=== PATIENT | male | born 1990 | race Caucasian/White ===

== ENCOUNTER 2017-07-19 16:32 | Emergency (ER) | payer OTHER ==
[2017-07-19 16:38] VITALS: PULSE 103; TEMP 97.6
--- NOTE | 2017-07-19 16:50 | ED ---
Abdominal Pain HPI - General Chief Complaint: Abdominal Pain Stated Complaint: Abd Pain, Trouble Urinating Time Seen by Provider: 07/19/17 16:40 Source: patient, RN notes reviewed Mode of arrival: ambulatory Limitations: no limitations - History of Present Illness Initial Comments: This is a 27-year-old male presents emergency Department chief complaint abdominal pain. Patient states pain started last 24 hours. Describes as lower abdominal pain and pressure. Patient states that he's had some urinary issues in which she's had hesitancy over the last few months and went and saw his primary care physician who treated for cystitis. Patient is currently taking Bactrim. He denies any diarrhea, constipation, melena hematochezia. He denies any current nausea vomiting. Denies any hematuria. Patient has no penile drainage. Denies any flank pain. He's had no prior abdominal surgeries. Patient states that he did take hydrocodone which she had from a prior surgery but states that which was discomfort. MD Complaint: abdominal pain - Related Data Home Medications Medication Instructions Recorded Confirmed Gabapentin [Neurontin] 300 mg PO TID 07/19/17 07/19/17 HYDROcodone/APAP 5-325MG [[place] 1 tab PO ONCE PRN 07/19/17 07/19/17 5-325] Naproxen [Naprosyn] 500 mg PO Q12HR PRN 07/19/17 07/19/17 Sulfamethox-Tmp 800-160Mg [Bactrim 1 tab PO Q12HR 07/19/17 07/19/17 DS 800-160 mg] Previous Rx's Medication Instructions Recorded Bisacodyl [Dulcolax] 5 mg PO DAILY #20 tablet. 07/19/17 Allergies Allergy/AdvReac Type Severity Reaction Status Date / Time Penicillins Allergy Rash/Hives Verified 07/19/17 16:49 Review of Systems ROS Statement: Those systems with pertinent positive or pertinent negative responses have been documented in the HPI. ROS Other: All systems not noted in ROS Statement are negative. Past Medical History Past Medical History: No Reported History History of Any Multi-Drug Resistant Organisms: None Reported Additional Past Surgical History / Comment(s): Larissa on left leg Past Psychological History: No Psychological Hx Reported Smoking Status: Never smoker Past Alcohol Use History: Rare Past Drug Use History: None Reported General Exam Limitations: no limitations General appearance: alert, in no apparent distress Head exam: Present: atraumatic, normocephalic, normal inspection Respiratory exam: Present: normal lung sounds bilaterally. Absent: respiratory distress, wheezes, rales, rhonchi, stridor Cardiovascular Exam: Present: regular rate, normal rhythm, normal heart sounds. Absent: systolic murmur, diastolic murmur, rubs, gallop, clicks GI/Abdominal exam: Present: soft, tenderness (Mild tenderness of the lower abdomen), normal bowel sounds. Absent: distended, guarding, rebound, rigid Back exam: Absent: CVA tenderness (R), CVA tenderness (L) Course Vital Signs 07/19/17 07/19/17 16:34 17:38 Temperature 97.6 F Pulse Rate 103 H Respiratory 18 16 Rate Blood Pressure 128/74 124/78 O2 Sat by Pulse 98 Oximetry Medical Decision Making - Medical Decision Making 27-year-old male presents for abdominal pain. Patient's found have moderate stool burden on x-ray. Patient's labwork unremarkable. Patient does have some complaints of urinary hesitancy and which she is advised follow-up with urology. Patient was up-to-date on all his lab results. Patient will be discharged on laxatives at this time. - Lab Data Result diagrams: 07/19/17 17:00 07/19/17 17:00 Lab Results 07/19/17 07/19/17 07/19/17 Range/Units 17:00 17:00 17:00 WBC 7.2 (3.8-10.6) k/uL RBC 5.58 (4.30-5.90) m/uL Hgb 15.7 (13.0-17.5) gm/dL Hct 45.2 (39.0-53.0) % MCV 81.0 (80.0-100.0) fL MCH 28.2 (25.0-35.0) pg MCHC 34.8 (31.0-37.0) g/dL RDW 12.5 (11.5-15.5) % Plt Count 252 (150-450) k/uL Neutrophils % 55 % Lymphocytes % 30 % Monocytes % 10 % Eosinophils % 1 % Basophils % 1 % Neutrophils # 4.0 (1.3-7.7) k/uL Lymphocytes # 2.2 (1.0-4.8) k/uL Monocytes # 0.7 (0-1.0) k/uL Eosinophils # 0.1 (0-0.7) k/uL Basophils # 0.1 (0-0.2) k/uL Sodium 143 (137-145) mmol/L Potassium 4.0 (3.5-5.1) mmol/L Chloride 101 (98-107) mmol/L Carbon Dioxide 25 (22-30) mmol/L Anion Gap 17 mmol/L BUN 15 (9-20) mg/dL Creatinine 1.00 (0.66-1.25) mg/dL Est GFR (CKD-EPI)AfAm >90 (>60 ml/min/1.73 sqM) Est GFR (CKD-EPI)NonAf >90 (>60 ml/min/1.73 sqM) Glucose 108 H (74-99) mg/dL Calcium 9.7 (8.4-10.2) mg/dL Total Bilirubin 0.5 (0.2-1.3) mg/dL AST 22 (17-59) U/L ALT 21 (21-72) U/L Alkaline Phosphatase 99 (38-126) U/L Total Protein 7.7 (6.3-8.2) g/dL Albumin 4.8 (3.5-5.0) g/dL Amylase 94 (30-110) U/L Lipase 126 (23-300) U/L Urine Color Yellow Urine Appearance Clear (Clear) Urine pH 6.0 (5.0-8.0) Ur Specific [place] 1.025 (1.001-1.035) Urine Protein Trace H (Negative) Urine Glucose (UA) Negative (Negative) Urine Ketones Negative (Negative) Urine Blood Negative (Negative) Urine Nitrite Negative (Negative) Urine Bilirubin Negative (Negative) Urine Urobilinogen 2.0 (<2.0) mg/dL Ur Leukocyte Esterase Negative (Negative) Disposition Clinical Impression: Abdominal pain, Constipation, Urinary hesitancy Disposition: HOME SELF-CARE Condition: Stable Instructions: Abdominal Pain (ED) Additional Instructions: Please return to the Emergency Department if symptoms worsen or any other concerns. Prescriptions: Bisacodyl [Dulcolax] 5 mg PO DAILY #20 tablet.dr Referrals: Cordell Conway MD [Primary Care Provider] - 1-2 days Nain Stroud MD [STAFF PHYSICIAN] - 1-2 days Time of Disposition: 17:55
[2017-07-19 17:09] LABS: Appearance,Urine Clear (Clear); Bilirubin,Urine Negative (Negative); Blood,Urine Negative (Negative); Color,Urine Yellow; Glucose,Urine (UA) Negative (Negative); Ketones,Urine Negative (Negative); Leukocyte Esterase,Urine Negative (Negative); Nitrite,Urine Negative (Negative); Protein,Urine Trace (Negative); Specific Gravity,Urine 1.025 (1.001-1.035)
[2017-07-19 17:10] LABS: Basophils # (A) 0.1 k/uL (0-0.2); Basophils % (A) 1 %; Eosinophils # (A) 0.1 k/uL (0-0.7); Eosinophils % (A) 1 %; HCT 45.2 % (39.0-53.0); HGB 15.7 gm/dL (13.0-17.5); Lymphocytes # (A) 2.2 k/uL (1.0-4.8); Lymphocytes % (A) 30 %; MCH 28.2 pg (25.0-35.0); MCHC 34.8 g/dL (31.0-37.0); Mean Platelet Volume 7.5; Monocytes # (A) 0.7 k/uL (0-1.0); Monocytes % (A) 10 %; Neutrophils % (A) 55 %; Platelet Count 252 k/uL (150-450); RBC 5.58 m/uL (4.30-5.90); RDW 12.5 % (11.5-15.5); WBC 7.2 k/uL (3.8-10.6)
[2017-07-19 17:21] LABS: ALT 21 U/L (21-72); AST 22 U/L (17-59); Albumin 4.8 g/dL (3.5-5.0); Alkaline Phosphatase 99 U/L (38-126); Amylase 94 U/L (30-110); Anion Gap 17 mmol/L; Blood Urea Nitrogen 15 mg/dL (9-20); Calcium 9.7 mg/dL (8.4-10.2); Carbon Dioxide 25 mmol/L (22-30); Chloride 101 mmol/L (98-107); Glucose 108 mg/dL (74-99); Lipase 126 U/L (23-300); Sodium 143 mmol/L (137-145); Total Bilirubin 0.5 mg/dL (0.2-1.3); Total Protein 7.7 g/dL (6.3-8.2)
--- NOTE | 2017-07-19 17:38 | XR ---
EXAMINATION TYPE: XR KUB DATE OF EXAM: 07/19/2017 CLINICAL DATA: 27-year-old male with abdominal pain, [facility] COMPARISON: None FINDINGS: Lung bases are clear. No evidence for free intraperitoneal air. No dilated small bowel or air-fluid levels. Scattered air and stool seen throughout the colon extendi ng distally into the rectum. Mild to moderate stool burden. No suspicious calcifications identified. Marked S-shaped scoliosis. IMPRESSION: 1. Mild to moderate stool burden. 2.No evidence of bowel obstruction or free intraperitoneal air. 3. S-shaped scoliosis.
[2017-07-19 17:44] VITALS: BP 124/78; RESP 16
[2017-07-21 13:28] LABS: C. trachomatis,PCR Negative (Neg,Equiv); Chlamydia trachomatis Source Urine; N. gonorrhoeae,PCR Negative (Neg,Equiv); Neisseria Source Urine
== END 2017-07-19 18:01 | disposition home or self-care (01) ==
LOC: EC 16:32
DX: R10.30 Lower abdominal pain, unspecified (principal); K59.00 Constipation, unspecified; R39.11 Hesitancy of micturition; Z88.0 Allergy status to penicillin; Z79.899 Other long term (current) drug therapy
CPT/HCPCS: 36415; 74018; 80053; 81003; 82150; 83690; 85025; 87491; 87591; 99284

== ENCOUNTER 2017-08-13 16:08 | Emergency (ER) | payer OTHER ==
[2017-08-13] MEDS ORDERED: SODIUM CHLORIDE 0.9% 1,000 ML IV STA (17:25)
--- NOTE | 2017-08-13 17:33 | ED ---
General Adult HPI - General Chief complaint: Urogenital Stated complaint: Groin Pain Time Seen by Provider: 08/13/17 16:25 Source: patient, family, RN notes reviewed Mode of arrival: ambulatory Limitations: no limitations - History of Present Illness Initial comments: Chief complaint history of present illness a 27-year-old male here with his father. The patient was sent here from the urgent care clinic. The patient's been having for several months difficulty urinating. He states that when the urine tries to pass through the urethra and feels as though he in the urethra tremble. Complains of severe pain. 2 days ago he was treated for prostatitis with an unknown antibiotic at this time. The patient reports the pain persisted is continued. He states that on the last examination done at the urgent care just several hours ago the examining doctor stated the urethra felt firm. The patient refuses any more examination because of severe pain. Patient states she's not drinking water because she does not want to urinate. Patient denies ever having had any STDs. - Related Data Home Medications Medication Instructions Recorded Confirmed Gabapentin [Neurontin] 300 mg PO TID 07/19/17 08/13/17 Naproxen [Naprosyn] 500 mg PO Q12HR PRN 07/19/17 08/13/17 Previous Rx's Medication Instructions Recorded Ciprofloxacin HCl [Cipro] 500 mg PO Q12HR #14 tablet 08/13/17 Phenazopyridine [Pyridium] 200 mg PO TID #6 tablet 08/13/17 Allergies Allergy/AdvReac Type Severity Reaction Status Date / Time Penicillins Allergy Rash/Hives Verified 08/13/17 16:26 Review of Systems ROS Statement: Those systems with pertinent positive or pertinent negative responses have been documented in the HPI. Review of systems no headache or chest pain or shortness of breath or GI problems. All systems are reviewed. Past medical problems bilateral kneecap subluxations. Denies any other medical problems nonsmoker nondrinker. He states he was treated with antibiotics twice now for the same pain he has now. He does have an appointment to see urologist but not for 5 days. He states he could not stand the pain. Father states that when the pain comes as severe his son becomes diaphoretic. ROS Other: All systems not noted in ROS Statement are negative. Past Medical History Past Medical History: No Reported History Additional Past Medical History / Comment(s): scoliosis History of Any Multi-Drug Resistant Organisms: None Reported Additional Past Surgical History / Comment(s): Larissa on left leg Past Psychological History: No Psychological Hx Reported Smoking Status: Never smoker Past Alcohol Use History: Rare Past Drug Use History: None Reported General Exam - General Exam Comments Initial Comments: General: The patient is awake and alert, in moderate to severe discomfort. Complains of pain in the urethral shaft and the perineum. Declines reexamination because the last one he had at the urgent care was so painful even just mild testing declines to happen again. Vital signs show temperature 98.0 pulse 118 respiratory rate 20 pulse ox 99% room air blood pressure 137/82 Eye: Pupils are equal, Neck: The neck is supple, Cardiovascular: There is a regular rate and rhythm. No murmur, rub or gallop is appreciated. Respiratory: Lungs are clear to auscultation, respirations are non-labored, breath sounds are equal. No wheezes, stridor, rales, or rhonchi. Gastrointestinal: Pain in the urethra. States dysuria getting progressively worse. Recently treated for prostatitis without improvement. Examination of the genitalia shows normal-appearing penis and testicles. Pain with palpation to the urethra and perineum. Back: No back pain No skin rashes, no neuro deficits. Limitations: no limitations Course Vital Signs 08/13/17 08/13/17 16:16 17:41 Temperature 98.0 F Pulse Rate 118 H 101 H Respiratory 20 20 Rate Blood Pressure 137/82 144/83 O2 Sat by Pulse 99 100 Oximetry Medical Decision Making - Medical Decision Making Medical decision making; a 27-year-old male here with his father. The patient' s been having on-again off-again dysuria. The case discussed with Dr. Hernandez, on-call urologist. The patient be following up with him in office in 5 days, this was appointment that been made previously. Labs show white count 11 hemoglobin 15 hematocrit of 45. Potassium 3.6 with a BUN 16 creatinine 0.86 and GFR greater than 90. Glucose 88. Urine shows 4+ ketones. Also 45 white cells in clumps. Negative nitrate negative leuk esterase. Patient was hydrated emergency room he did urinate twice reports was feeling less discomfort while doing so. The patient states she's comfortable going home medications as described. The patient will receive Pyridium and Cipro. Told to call the emergency room for 5 days to talk follow-up nurse to make sure that the Cipro is covering the infection seen on the urine culture. - Lab Data Result diagrams: 08/13/17 17:38 08/13/17 17:38 Lab Results 08/13/17 08/13/17 08/13/17 Range/Units 17:38 17:38 19:07 WBC 11.0 H (3.8-10.6) k/uL RBC 5.61 (4.30-5.90) m/uL Hgb 15.7 (13.0-17.5) gm/dL Hct 45.6 (39.0-53.0) % MCV 81.3 (80.0-100.0) fL MCH 28.0 (25.0-35.0) pg MCHC 34.4 (31.0-37.0) g/dL RDW 12.6 (11.5-15.5) % Plt Count 241 (150-450) k/uL Neutrophils % 69 % Lymphocytes % 24 % Monocytes % 6 % Eosinophils % 0 % Basophils % 1 % Neutrophils # 7.6 (1.3-7.7) k/uL Lymphocytes # 2.6 (1.0-4.8) k/uL Monocytes # 0.7 (0-1.0) k/uL Eosinophils # 0.0 (0-0.7) k/uL Basophils # 0.1 (0-0.2) k/uL Sodium 144 (137-145) mmol/L Potassium 3.6 (3.5-5.1) mmol/L Chloride 106 (98-107) mmol/L Carbon Dioxide 21 L (22-30) mmol/L Anion Gap 17 mmol/L BUN 16 (9-20) mg/dL Creatinine 0.86 (0.66-1.25) mg/dL Est GFR (CKD-EPI)AfAm >90 (>60 ml/min/1.73 sqM) Est GFR (CKD-EPI)NonAf >90 (>60 ml/min/1.73 sqM) Glucose 88 (74-99) mg/dL Calcium 10.2 (8.4-10.2) mg/dL Total Bilirubin 0.6 (0.2-1.3) mg/dL AST 22 (17-59) U/L ALT 24 (21-72) U/L Alkaline Phosphatase 115 (38-126) U/L Total Protein 7.6 (6.3-8.2) g/dL Albumin 5.0 (3.5-5.0) g/dL Urine Color Yellow Urine Appearance Turbid (Clear) Urine pH 8.0 (5.0-8.0) Ur Specific [place] 1.023 (1.001-1.035) Urine Protein Trace H (Negative) Urine Glucose (UA) Negative (Negative) Urine Ketones 4+ H (Negative) Urine Blood Negative (Negative) Urine Nitrite Negative (Negative) Urine Bilirubin Negative (Negative) Urine Urobilinogen 2.0 (<2.0) mg/dL Ur Leukocyte Esterase Negative (Negative) Urine WBC 45 H (0-5) /hpf Urine WBC Clumps Many H (None) /hpf Urine Mucus Few H (None) /hpf Disposition Clinical Impression: Urinary tract infection Disposition: HOME SELF-CARE Condition: Fair Instructions: Urinary Tract Infection in Men (ED) Additional Instructions: Increase fluids. Take Pyridium which will turn urine orange as directed take Cipro until completed. Call follow-up nurse in the emergency room at [phone] results of the urine culture and sensitivity study. Follow-up with Dr. Hernandez on Thursday as arranged. Prescriptions: Ciprofloxacin HCl [Cipro] 500 mg PO Q12HR #14 tablet Phenazopyridine [Pyridium] 200 mg PO TID #6 tablet Is patient prescribed a controlled substance at d/c from ED?: No When asked, does pt state using other controlled substances?: No Referrals: Cordell Conway MD [Primary Care Provider] - 1-2 days Time of Disposition: 20:03
[2017-08-13 18:02] LABS: Basophils # (A) 0.1 k/uL (0-0.2); Basophils % (A) 1 %; Eosinophils % (A) 0 %; HCT 45.6 % (39.0-53.0); HGB 15.7 gm/dL (13.0-17.5); Lymphocytes # (A) 2.6 k/uL (1.0-4.8); Lymphocytes % (A) 24 %; MCHC 34.4 g/dL (31.0-37.0); MCV 81.3 fL (80.0-100.0); Mean Platelet Volume 7.8; Monocytes # (A) 0.7 k/uL (0-1.0); Monocytes % (A) 6 %; Neutrophils # (A) 7.6 k/uL (1.3-7.7); Neutrophils % (A) 69 %; Platelet Count 241 k/uL (150-450); RBC 5.61 m/uL (4.30-5.90); RDW 12.6 % (11.5-15.5)
[2017-08-13 18:17] LABS: ALT 24 U/L (21-72); AST 22 U/L (17-59); Alkaline Phosphatase 115 U/L (38-126); Anion Gap 17 mmol/L; Blood Urea Nitrogen 16 mg/dL (9-20); Calcium 10.2 mg/dL (8.4-10.2); Carbon Dioxide 21 mmol/L (22-30); Chloride 106 mmol/L (98-107); Glucose 88 mg/dL (74-99); Potassium 3.6 mmol/L (3.5-5.1); Sodium 144 mmol/L (137-145); Total Bilirubin 0.6 mg/dL (0.2-1.3); Total Protein 7.6 g/dL (6.3-8.2)
[2017-08-13 19:28] LABS: Appearance,Urine Turbid (Clear); Bilirubin,Urine Negative (Negative); Blood,Urine Negative (Negative); Color,Urine Yellow; Glucose,Urine (UA) Negative (Negative); Ketones,Urine 4+ (Negative); Leukocyte Esterase,Urine Negative (Negative); Mucus,Urine Few /hpf; Nitrite,Urine Negative (Negative); Protein,Urine Trace (Negative); Specific Gravity,Urine 1.023 (1.001-1.035); WBC,Urine 45 /hpf (0-5)
[2017-08-13] MEDS ORDERED: PHENAZOPYRIDINE 200 MG TAB PO STA (20:00)
[2017-08-13] MEDS ORDERED: CIPROFLOXACIN HCL 500 MG TAB PO STA (20:00)
[2017-08-13 20:34] VITALS: BP 138/82; PULSE 103; RESP 18; TEMP 97
== END 2017-08-13 20:34 | disposition home or self-care (01) ==
LOC: EC 16:08
DX: N39.0 Urinary tract infection, site not specified (principal); Z79.899 Other long term (current) drug therapy; Z88.0 Allergy status to penicillin
CPT/HCPCS: 36415; 80053; 81001; 85025; 87086; 96360; 96361; 99283

== ENCOUNTER 2017-08-16 14:16 | Emergency (ER) | payer OTHER ==
[2017-08-16 14:45] VITALS: BP 134/78; PULSE 113; RESP 18; TEMP 99.9
[2017-08-16] MEDS ORDERED: ACETAMINOPHEN TAB 500 MG TAB PO STA (15:43)
--- NOTE | 2017-08-16 15:56 | ED ---
General Adult HPI - General Chief complaint: Recheck/Abnormal Lab/Rx Stated complaint: Dysphagia Time Seen by Provider: 08/16/17 14:49 Source: patient, RN notes reviewed Mode of arrival: ambulatory Limitations: no limitations - History of Present Illness Initial comments: 27-year-old male presents to the emergency department for a chief complaint of pain in the throat times one day. Patient states it hurts to swallow and feels better when he turns his head to the side to swallow. Patient states he can swallow solids and liquids fine. He is eating and drinking normally. Patient denies any shortness of breath. Patient denies any feelings of his throat closing or swelling. Patient denies any rashes hives or itching. Patient has seasonal ALLERGIES and states he always has nasal drainage and post nasal drip. Patient believes this is a direct side effect of ciprofloxacin that he was given in the emergency department four days ago. He has since taken 4 days worth of Cipro. Patient was seen in the emergency department four days ago for difficulty urinating and has an upcoming appointment in 3 days with a urologist. This urination complaint has been ongoing for months. Patient states that with the antibiotic he is feeling a lot better and the pain has subsided. Patient denies any current urinary or genital pain. However patient is concerned with the side effects of Cipro including tendon rupture. 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 Patient states that on the pamphlet there are a lot of side effects listed. Patient denies fevers or chills at home. Patient denies cough , congestion, headache, ear pain, or any other complaints. Patient denies shortness of breath, chest pain abdominal pain nausea or vomiting. - Related Data Home Medications Medication Instructions Recorded Confirmed Gabapentin [Neurontin] 300 mg PO TID 07/19/17 08/13/17 Naproxen [Naprosyn] 500 mg PO Q12HR PRN 07/19/17 08/13/17 Previous Rx's Medication Instructions Recorded Ciprofloxacin HCl [Cipro] 500 mg PO Q12HR #14 tablet 08/13/17 Ciprofloxacin HCl [Cipro] 500 mg PO Q12HR #14 tablet 08/13/17 Phenazopyridine [Pyridium] 200 mg PO TID #6 tablet 08/13/17 Phenazopyridine [Pyridium] 200 mg PO TID #6 tablet 08/13/17 Phenazopyridine [Pyridium] 200 mg PO TID #6 tablet 08/13/17 Doxycycline [Vibramycin] 100 mg PO Q12HR 10 Days capsule 08/16/17 Loratadine [Claritin] 10 mg PO DAILY #20 tab 08/16/17 Allergies Allergy/AdvReac Type Severity Reaction Status Date / Time ciprofloxacin [From Cipro] Allergy Unknown Verified 08/16/17 16:14 Penicillins Allergy Rash/Hives Verified 08/16/17 14:45 Review of Systems ROS Statement: Those systems with pertinent positive or pertinent negative responses have been documented in the HPI. ROS Other: All systems not noted in ROS Statement are negative. Past Medical History Past Medical History: No Reported History Additional Past Medical History / Comment(s): scoliosis, finger pain History of Any Multi-Drug Resistant Organisms: None Reported Past Surgical History: No Surgical Hx Reported Additional Past Surgical History / Comment(s): Larissa on left leg Past Psychological History: No Psychological Hx Reported Smoking Status: Never smoker Past Alcohol Use History: Rare Past Drug Use History: None Reported General Exam Limitations: no limitations General appearance: alert, in no apparent distress Head exam: Present: atraumatic, normocephalic, normal inspection Eye exam: Present: normal appearance, PERRL, EOMI. Absent: scleral icterus, conjunctival injection, periorbital swelling ENT exam: Present: normal exam, normal oropharynx (no redness or exudates noted. ), mucous membranes moist, TM's normal bilaterally Neck exam: Present: normal inspection, full ROM. Absent: tenderness, meningismus, lymphadenopathy Respiratory exam: Present: normal lung sounds bilaterally. Absent: respiratory distress, wheezes, rales, rhonchi, stridor Cardiovascular Exam: Present: regular rate, normal rhythm, normal heart sounds. Absent: systolic murmur, diastolic murmur, rubs, gallop, clicks GI/Abdominal exam: Present: soft, normal bowel sounds. Absent: distended, tenderness, guarding, rebound, rigid Course Vital Signs 08/16/17 14:39 Temperature 99.9 F H Pulse Rate 113 H Respiratory 18 Rate Blood Pressure 134/78 O2 Sat by Pulse 98 Oximetry Medical Decision Making - Medical Decision Making 27-year-old male presents to the emergency department for chief complaint of sore throat and dysphagia. Patient is not drooling and is swallowing his spit fine in the emergency department. Patient denies any difficult eating or drinking. Patient denies any difficulty breathing. Patient denies any swelling in the throat. Patient states it feels better when he looks to the side. Patient believes this as a side effect of Cipro given to him 4 days ago in the emergency department. He has been taking his prescription since that time. Patient wants a different antibiotic because he is concerned Cipro causes tendinopathy and he has a history of Achilles tendinopathy. He states this antibiotic has many side effects listed in the pamphlet. I discussed with the patient that any antibiotic we give him will have a long list of side effects, but I would change the antibiotic. I discussed with him that his urine culture was negative, but we would keep him covered with doxycycline until he sees the urologist in 3 days. I discussed the risk of increased sunburn with this antibiotic. Patient agrees with this plan of action. Strep was negative. Patient has seasonal ALLERGIES and is having a postnasal drip. Patient likely has a viral pharyngitis or irritation in the throat due to seasonal ALLERGIES and postnasal drip. He will also be given Claritin. Tylenol was given for low-grade fever. He can continue Motrin or Tylenol for fever reduction later in the day. Patient likely has a viral pharyngitis causing the pain in his throat. Patient will follow up with Dr. Hernandez in one to 2 days. He will return to the emergency department if he has any worsening symptoms. Patient is aware he needs to return if he notices any swelling in the throat or difficulty breathing. Case was discussed with Dr. Liu. - Lab Data Lab Results 08/16/17 Range/Units 15:32 Group A Strep Rapid Negative (Negative) Disposition Clinical Impression: Viral pharyngitis Disposition: HOME SELF-CARE Condition: Good Instructions: Urinary Tract Infection in Men (ED), Pharyngitis (ED) Additional Instructions: Please continue to take doxycycline as directed. Please remember that doxycycline can cause worsening sunburn. You may take Tylenol and Motrin for pain relief and fever reduction. Please return to the emergency department if you've any worsening symptoms. Otherwise follow-up with Dr. Hernandez at your scheduled appointment in 3 days. Prescriptions: Doxycycline [Vibramycin] 100 mg PO Q12HR 10 Days capsule Loratadine [Claritin] 10 mg PO DAILY #20 tab Is patient prescribed a controlled substance at d/c from ED?: No Referrals: Cordell Conway MD [Primary Care Provider] - 1-2 days Time of Disposition: 15:58
== END 2017-08-16 16:25 | disposition home or self-care (01) ==
LOC: EC 14:16
DX: J02.8 Acute pharyngitis due to other specified organisms (principal); Z79.899 Other long term (current) drug therapy; Z88.0 Allergy status to penicillin; Z88.1 Allergy status to other antibiotic agents; Z91.09 Other allergy status, other than to drugs and biological substances
CPT/HCPCS: 87081; 87430; 99284

== ENCOUNTER → 2018-07-28 | Outpatient (CLI) | payer OTHER ==
--- NOTE | 2018-07-28 13:58 | MR ---
MRI CERVICAL SPINE: CLINICAL HISTORY: Cervicalgia per order. TECHNIQUE: Multiplanar, multisequence imaging of the cervical spine is performed without IV contrast. COMPARISON: None. FINDINGS: Sagittal images of the cervical spine show the craniocervical junction to appear within nor mal limits. The cervical and upper thoracic spinal cord is normal in course, caliber, and signal. V ertebral alignment is anatomic. The vertebral body and intravertebral disk heights are normal. Small posterior disc herniation C5-C6 level effaces anterior thecal sac on sagittal images. Additional tin y disc herniations are seen C6-C7 and C7-T1 level. Incidental larger disc herniation T2-T3 level sagi ttal image 7 effaces anterolateral thecal sac. The bone marrow signal intensity is within normal limi ts. No significant spurring is present. Axial images show the C2-C3, C3-C4, and C4-C5 levels all to appear within normal limits. Axial images at C5-C6 level shows central disc protrusion mildly effacing anterior thecal sac with po sterior increased signal or annular tear. Axial images at C6-C7 level show left paracentral/foraminal disc protrusion effacing anterolateral th ecal sac and causing mild left-sided neural foraminal narrowing axial image 19. Axial images at C7-T1 level showed tiny right paracentral disc protrusion mildly effacing anterior th ecal sac, bilateral neural foramina are patent. IMPRESSION: Some multilevel degenerative changes in the mid to lower cervical spine as detailed above .
== END | disposition home or self-care (01) ==
LOC: RADMRIMAIN 13:09
PROVIDERS: ATTEND Family Medicine
DX: M48.02 Spinal stenosis, cervical region (principal); M50.222 Other cervical disc displacement at C5-C6 level; M47.812 Spondylosis without myelopathy or radiculopathy, cervical region
CPT/HCPCS: 72141

== ENCOUNTER → 2020-09-21 | Outpatient (CLI) | payer OTHER | END | disposition home or self-care (01) | LOC: LABWHC1 15:16 | PROVIDERS: ATTEND Physician Assistant | DX: I49.9 Cardiac arrhythmia, unspecified (principal) | CPT/HCPCS: 36415; 93005 ==

== ENCOUNTER → 2021-04-05 | Outpatient (CLI) | payer OTHER | END | disposition home or self-care (01) | LOC: LABWHC1 14:46 | PROVIDERS: ATTEND Nurse Practitioner Women's Health | DX: J02.9 Acute pharyngitis, unspecified (principal) | CPT/HCPCS: 87338 ==

== ENCOUNTER → 2021-10-08 | Outpatient (CLI) | payer OTHER ==
--- NOTE | 2021-10-08 22:40 | CT ---
EXAMINATION TYPE: CT soft tissue neck w con DATE OF EXAM: 10/08/2021 6:31 PM COMPARISON: Cervical spine MRI dated 06/04/2021 HISTORY: h/o throat pain CT DLP: 632 mGycm Automated exposure control for dose reduction was used. CONTRAST: CT scan of the neck is performed following with IV Contrast, patient injected with 100 mL of Isovue 3 00. Axial images are obtained, coronal and sagittal reformatted images are reviewed. FINDINGS: Grossly unremarkable nasopharynx, oropharynx, hypopharynx, larynx, trachea and visualized portion of the esophagus. Unremarkable thyroid gland. Symmetrical unremarkable parotid and submandibular salivar y glands. No pathologically enlarged lymph nodes in the neck. Patent major neck vessels. Unremarkable prevertebral soft tissue. Millimetric sclerotic focus is seen within T2 vertebral body, possibly representing a bone island. Another more faint millimetric sclerotic focus is seen in T2 muna tebral body. Further bone scan assessment can be considered. No gross aggressive bone lesion. IMPRESSION: No definite suspicious lesion or lymphadenopathy seen in the neck. Nonspecific millimetric sclerotic foci within T2 vertebral body as described above. No bone destruction. Further bone scan assessment c an be considered if clinically required.
== END | disposition home or self-care (01) ==
LOC: RADCTMAIN 16:47
PROVIDERS: ATTEND Family Medicine
DX: J02.9 Acute pharyngitis, unspecified (principal)
CPT/HCPCS: 70491; Q9967

== ENCOUNTER → 2022-02-27 | Outpatient (CLI) | payer OTHER ==
[2022-02-27 18:19] LABS: Basophils # (A) 0.06 X 10*3/uL (0.00-0.10); Basophils % (A) 1.2 %; Eosinophils # (A) 0.07 X 10*3/uL (0.04-0.35); Eosinophils % (A) 1.4 %; HCT 45.6 % (39.6-50.0); HGB 14.6 g/dL (13.0-17.0); Immature Grans, Automated 0 %; Lymphocytes # (A) 2.08 X 10*3/uL (0.90-5.00); Lymphocytes % (A) 40.4 %; MCH 27.3 pg (27.0-32.0); MCV 85.4 fL (80.0-97.0); Mean Platelet Volume 11.2 fL (9.5-12.2); Monocytes # (A) 0.41 X 10*3/uL (0.20-1.00); NRBC Per 100 WBC 0 /100 WBCS (0.0-0.0); Neutrophils # (A) 2.53 X 10*3/uL (1.80-7.70); Platelet Count 218 X 10*3/uL (140-440); RBC 5.34 X 10*6/uL (4.40-5.60); RDW 12.3 % (11.5-14.5); WBC 5.15 X 10*3/uL (4.50-10.00)
[2022-02-27 18:37] LABS: Albumin 4.8 g/dL (3.8-4.9); Albumin/Globulin Ratio 1.93 (1.60-3.17); Anion Gap 10.7 mmol/L (10.00-18.00); BUN/Creat Ratio 11.7 Ratio (12.00-20.00); Blood Urea Nitrogen 10.9 mg/dL (9.0-27.0); Calcium 9.7 mg/dL (8.7-10.3); Carbon Dioxide 28.4 mmol/L (20.0-27.5); Chol/HDL Ratio 2.49 Ratio; Globulin 2.5 g/dL (1.6-3.3); HDL Cholesterol 61.5 mg/dL (40.00-60.00); Non-African American GFR(CKD) 108.7 (60.0-200.0); Potassium 4.2 mmol/L (3.5-5.5); Total Bilirubin 0.6 mg/dL (0.30-1.20); Total Protein 7.2 g/dL (6.2-8.2); Triglycerides 43.6 mg/dL (0.00-149.00)
[2022-02-28 01:20] LABS: LDL Cholesterol,Direct Reflex 84.6 mg/dL (0.00-129.00)
== END | disposition home or self-care (01) ==
LOC: LABWHC1 10:12
PROVIDERS: ATTEND Family Medicine
DX: Z00.00 Encounter for general adult medical examination without abnormal findings (principal); R63.4 Abnormal weight loss; R07.0 Pain in throat; K21.9 Gastro-esophageal reflux disease without esophagitis; M79.2 Neuralgia and neuritis, unspecified; M19.90 Unspecified osteoarthritis, unspecified site
CPT/HCPCS: 36415; 80053; 80061; 83721; 84443; 85025; 86803

== ENCOUNTER 2022-07-08 13:24 | Emergency (ER) | payer OTHER ==
[2022-07-08 13:32] VITALS: BP 124/78; PULSE 107; RESP 20; TEMP 97.7
--- NOTE | 2022-07-08 13:43 | ED ---
General Adult HPI - General Chief complaint: Extremity Problem,Nontraumatic Stated complaint: left ankle pain Time Seen by Provider: 07/08/22 13:30 Source: patient, RN notes reviewed, old records reviewed Mode of arrival: wheelchair Limitations: no limitations - History of Present Illness Initial comments: This is a 32-year-old male who presents emergency Department complaining of left ankle pain on the medial aspect. Patient states been ongoing for about a year but in the last 4 days is gotten considerably worse. Patient has a boot for his leg because he had a procedure done on his gastrocnemius muscle back in 2016. Patient denies any injury or trauma. Patient thinks it's a little more swollen medially than normal. Patient denies any foot pain or upper leg pain. - Related Data Home Medications Medication Instructions Recorded Confirmed Gabapentin [Neurontin] 300 mg PO TID 07/19/17 08/13/17 Naproxen [Naprosyn] 500 mg PO Q12HR PRN 07/19/17 08/13/17 Previous Rx's Medication Instructions Recorded Ciprofloxacin HCl [Cipro] 500 mg PO Q12HR #14 tablet 08/13/17 Ciprofloxacin HCl [Cipro] 500 mg PO Q12HR #14 tablet 08/13/17 Phenazopyridine [Pyridium] 200 mg PO TID #6 tablet 08/13/17 Phenazopyridine [Pyridium] 200 mg PO TID #6 tablet 08/13/17 Phenazopyridine [Pyridium] 200 mg PO TID #6 tablet 08/13/17 Doxycycline [Vibramycin] 100 mg PO Q12HR 10 Days capsule 08/16/17 Loratadine [Claritin] 10 mg PO DAILY #20 tab 08/16/17 Ketorolac [Toradol] 10 mg PO Q6HR #15 tab 07/08/22 Allergies Allergy/AdvReac Type Severity Reaction Status Date / Time ciprofloxacin [From Cipro] Allergy Unknown Verified 07/08/22 13:32 Penicillins Allergy Rash/Hives Verified 07/08/22 13:32 Review of Systems ROS Statement: Those systems with pertinent positive or pertinent negative responses have been documented in the HPI. ROS Other: All systems not noted in ROS Statement are negative. Past Medical History Past Medical History: No Reported History Additional Past Medical History / Comment(s): scoliosis, finger pain. achilles tendonitis History of Any Multi-Drug Resistant Organisms: None Reported Past Surgical History: No Surgical Hx Reported Additional Past Surgical History / Comment(s): Larissa on left leg Past Psychological History: No Psychological Hx Reported Smoking Status: Never smoker Past Alcohol Use History: Rare Past Drug Use History: None Reported General Exam - General Exam Comments Initial Comments: GENERAL Patient is well-developed and well-nourished. Patient is in mild distress. EYES Patient's pupils are equal and round. Extraocular motion is intact SKIN Unremarkable NEURO The patient is alert and oriented 3 PYSCH Patient has normal interpersonal interactions. MUSCULOSKELETAL Ankle is a little tender along the medial malleolus. There is a little swelling in the superior anterior aspect of the medial malleolus Limitations: no limitations Course Vital Signs 07/08/22 13:28 Temperature 97.7 F Pulse Rate 107 H Respiratory 20 Rate Blood Pressure 124/78 O2 Sat by Pulse 99 Oximetry Medical Decision Making - Medical Decision Making Was pt. sent in by a medical professional or institution (, PA, STITCHER FEEDER, urgent care, hospital, or shelter...) When possible be specific @ -No Did you speak to anyone other than the patient for history (EMS, parent, family, police, friend...)? What history was obtained from this source @ -Patient's father did quite a bit of history as well Did you review nursing and triage notes (agree or disagree)? Why? @ -I reviewed and agree with nursing and triage notes Were old charts reviewed (outside hosp., previous admission, EMS record, old EKG, old radiological studies, urgent care reports/EKG's, shelter records)? Report findings @ -No old charts were reviewed Differential Diagnosis (chest pain, altered mental status, abdominal pain women, abdominal pain men, vaginal bleeding, weakness, fever, dyspnea, syncope, headache, dizziness, GI bleed, back pain, seizure, CVA, palpatations, mental health, musculoskeletal)? @ -Differential Musculoskeletal Muscular strain, contusion, ligament sprain, fracture, arthritis, septic arthritis, bursitis, cellulitis, muscle spasm, nerve compression, DVT, arterial occlusion, herpes zoster, electrolyte abnormality, tumor.... This is not meant to be in all inclusive list EKG interpreted by me (3pts min.). @ -As above X-rays interpreted by me (1pt min.). @ -Ankle was interpreted by myself is in no acute abnormality. CT interpreted by me (1pt min.). @ -None done U/S interpreted by me (1pt. min.). @ -None done What testing was considered but not performed or refused? (CT, X-rays, U/S, labs)? Why? @ -None What meds were considered but not given or refused? Why? @ -None Did you discuss the management of the patient with other professionals (professionals i.e. Dr., PA, STITCHER FEEDER, lab, RT, psych nurse, social services technician, woodyard operator, teacher, correction officer penitentiary, employment case manager)? Give summary @ -No Was smoking cessation discussed for >3mins.? @ -No Was critical care preformed (if so, how long)? @ -No Were there social determinants of health that impacted care today? How? (Homelessness, low income, unemployed, alcoholism, drug addiction, transportation, low edu. Level, literacy, decrease access to med. care, usp, rehab)? @ -No Was there de-escalation of care discussed even if they declined (Discuss DNR or withdrawal of care, Hospice)? DNR status @ -No What co-morbidities impacted this encounter? (DM, HTN, Smoking, COPD, CAD, Cancer, CVA, ARF, Chemo, Hep., AIDS, mental health diagnosis, sleep apnea, morbid obesity)? @ -None Was patient admitted / discharged? Hospital course, mention meds given and route, prescriptions, significant lab abnormalities, going to OR and other pertinent info. @ -Patient was having increasing ankle pain/x-ray of the ankle showed no acute abnormality. Patient ordered he has ortho boot which she states does help. Patient is able to follow up with orthopedics. Undiagnosed new problem with uncertain prognosis? @ -No Drug Therapy requiring intensive monitoring for toxicity (Heparin, Nitro, Insulin, Cardizem)? @ -No Were any procedures done? @ -No Diagnosis/symptom? @ -Ankle sprain Acute, or Chronic, or Acute on Chronic? @ -Acute Uncomplicated (without systemic symptoms) or Complicated (systemic symptoms)? @ -default Side effects of treatment? @ -No Exacerbation, Progression, or Severe Exacerbation? @ -No Poses a threat to life or bodily function? How? (Chest pain, [place], AR, pneumonia, PE, COPD, DKA, ARF, appy, cholecystitis, CVA, Diverticulitis, Homicidal, Suicidal, threat to staff... and all critical care pts) @ -No Disposition Clinical Impression: Ankle sprain Disposition: HOME SELF-CARE Condition: Good Instructions (If sedation given, give patient instructions): Ankle Sprain (ED) Prescriptions: Ketorolac [Toradol] 10 mg PO Q6HR #15 tab Is patient prescribed a controlled substance at d/c from ED?: No Referrals: Sergio Rodriguez MD [STAFF PHYSICIAN] - 1-2 days Time of Disposition: 14:34
--- NOTE | 2022-07-08 14:30 | XR ---
EXAMINATION TYPE: XR ankle limited LT DATE OF EXAM: 07/08/2022 COMPARISON: None HISTORY: Medial malleolar pain TECHNIQUE: 2 view left ankle FINDINGS: Ankle mortise is intact. Soft tissues appear normal. No acute fracture or dislocation is ev ident. There appears to be loss of the plantar arch. Follow up exams can be performed 7-10 days from acute trauma for continued pain. MRI can be performed if evaluation of soft tissues would be of benefit. IMPRESSION: 1. No acute osseous abnormality. 2. Loss of the plantar arch.
[2022-07-08] MEDS ORDERED: KETOROLAC 15 MG/ML 1 ML VIAL IM STA (14:31)
== END 2022-07-08 14:41 | disposition home or self-care (01) ==
LOC: EC 13:24
DX: S93.402A Sprain of unspecified ligament of left ankle, initial encounter (principal); Z88.0 Allergy status to penicillin; Z88.1 Allergy status to other antibiotic agents; X58.XXXA Exposure to other specified factors, initial encounter
CPT/HCPCS: 73600; 99283; 96372; J1885

== ENCOUNTER → 2022-09-08 | Outpatient (CLI) | payer OTHER ==
--- NOTE | 2022-09-09 17:35 | MR ---
EXAMINATION TYPE: MR foot LT wo con DATE OF EXAM: 09/08/2022 COMPARISON: Correlation radiograph 07/08/2022 HISTORY: 32-year-old male M21.42, Left foot pain, swelling, and locking, acquired spastic flat foot, left side TECHNIQUE: Multiplanar, multisequence images of the left foot were obtained without IV contrast. FINDINGS: Redemonstrated on the edge of the images is the bony tarsal coalition along the middle facet of the s ubtalar joint. Secondary pes planus. Some dorsal beaking at the talar head. No acute or healing fracture or suspicious bone marrow edema is seen. The extensor and flexor tendons show no gross abnormality. The Lisfranc ligament appears intact. No significant soft tissue abnormality or abnormal fluid collection is seen. IMPRESSION: Underlying congenital subtalar tarsal coalition as described on the MRI ankle of the same day. Second salbador pes planus. Otherwise, no specific abnormality of the remainder of the forefoot and midfoot.
== END | disposition home or self-care (01) ==
LOC: RADMRIMAIN 17:00
DX: M21.42 Flat foot [pes planus] (acquired), left foot (principal)

== ENCOUNTER → 2022-09-08 | Outpatient (CLI) | payer OTHER ==
--- NOTE | 2022-09-08 17:52 | MR ---
EXAMINATION TYPE: MR ankle LT wo con DATE OF EXAM: 09/08/2022 COMPARISON: Radiograph 07/08/2022 HISTORY: 32-year-old male M21.42, flatfoot. Left ankle, acquired spastic flat foot, left side. TECHNIQUE: Multiplanar, multisequence images of the left ankle were obtained without IV contrast. FINDINGS: Flat foot deformity. Hindfoot valgus. There is subtalar tarsal coalition across the middle subtalar j oint with a mature synostosis. The tibiotalar joint is intact. Small joint effusion. Smooth delineation to the Achilles tendon. The origin of the plantar fascia is intact. Preserved fatty signal within the sinus tarsi. Tarsal tunnel is clear. The lateral peroneal tendons as well as the lateral ligamentous complex appear intact. There is mild tenosynovial fluid along the medial flexor tendons. The deltoid spring ligament complex appears intact. The anterior flexor tendons and syndesmosis appear intact. There is mild degenerative spurring dorsal talonavicular joint. No acute or healing fracture abnormal bone marrow edema. IMPRESSION: 1. 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 2. Secondary congenital pes planus deformity. 3. Some fluid along the medial flexor tendons could be physiologic or could be secondary to a mild te nosynovitis.
== END | disposition home or self-care (01) ==
LOC: RADMRIMAIN 12:58
PROVIDERS: ATTEND Orthopaedic Surgery Foot and Ankle Surgery
DX: M21.42 Flat foot [pes planus] (acquired), left foot (principal); Q78.8 Other specified osteochondrodysplasias